=== PATIENT | male | born 1990 ===

== ENCOUNTER 2018-09-11 17:09 | Emergency (ER) | payer OTHER ==
[2018-09-11 18:57] LABS: BASO % 0.4 % (0.0-2.0); EOS # 0.2 K/uL (0.0-0.7); HEMOGLOBIN 15.9 g/dL (12.0-18.0); LYMPH # 1.9 K/uL (1.0-4.3); LYMPH % 18.7 % (20.0-40.0); MEAN CELL VOLUME 82.3 fl (80.0-94.0); MEAN CORPUSCULAR HEMOGLOBIN 28.7 pg (27.0-31.0); MEAN CORPUSCULAR HGB CONC 34.8 g/dL (33.0-37.0); MEAN PLATELET VOLUME 10.8 fl (7.2-11.7); MONO # 0.9 K/uL (0.0-0.8); MONO % 8.7 % (0.0-10.0); NEUT # 7.2 K/uL (1.8-7.0); NEUT % 70.2 % (50.0-75.0); NRBC % 0.1 % (0.0-0.0); RBC 5.54 Mil/uL (4.40-5.90); RED CELL DISTRIBUTION WIDTH 13.8 % (11.5-14.5); WHITE BLOOD COUNT 10.2 K/uL (4.8-10.8)
[2018-09-11 19:14] LABS: ALB/GLOB RATIO 1.4 (1.0-2.1); ALBUMIN 4.8 g/dL (3.5-5.0); ALT/SGPT 48 U/L (21-72); AST/SGOT 31 U/L (17-59); BLOOD UREA NITROGEN 12 mg/dl (9-20); CALCIUM 9.5 mg/dL (8.4-10.2); GFR NON-AFRICAN AMERICAN > 60
--- NOTE | 2018-09-11 19:34 | ED PDOC ---
HPI: General Adult Time Seen by Provider: 09/11/18 18:15 Chief Complaint (Nursing): Weakness/Neurological Deficit Chief Complaint (Provider): Numbness History Per: Patient History/Exam Limitations: no limitations Onset/Duration Of Symptoms: Days Current Symptoms Are (Timing): Still Present Severity: None Pain Scale Rating Of: 0 Additional Complaint(s): 27 y/o male c/o left sided arm pain/numbness/tingling for 3 days started after stretching and turning arm out. Patient reports since then numbness/tingling and rad to right arm and right side of the face. Patient states he is concerned and worried because numbness and tingling has progressed. Additionally he states that he has been feeling stressed and anxious lately. Patient denies headache, blurry vision, vomiting, unilateral weakness, recent illness, chest pain, shortness of breath, abd pain, diarrhea, dark urine. Past Medical History Reviewed: Historical Data, Nursing Documentation, Vital Signs Vital Signs: Last Vital Signs Temp 98.8 F 09/11/18 17:19 Pulse 76 09/11/18 17:19 Resp 20 09/11/18 17:19 BP 128/76 09/11/18 19:05 Pulse Ox 98 09/11/18 17:19 DYAN Report Viewed: No - Medical History PMH: No Chronic Diseases Denies: Chronic Kidney Disease - Surgical History Surgical History: No Surg Hx - Family History Family History: States: Unknown Family Hx - Living Arrangements Living Arrangements: With Family - Social History Alcohol: None Drugs: Denies - Immunization History Hx Tetanus Toxoid Vaccination: No Hx Influenza Vaccination: No Hx Pneumococcal Vaccination: No - Allergies Allergies/Adverse Reactions: Allergies Allergy/AdvReac Type Severity Reaction Status Date / Time No Known Allergies Allergy Verified 09/11/18 17:18 Review of Systems ROS Statement: Except As Marked, All Systems Reviewed And Found Negative Constitutional: Positive for: Weakness. Negative for: Fever, Chills, Sweats, Malaise Cardiovascular: Negative for: Chest Pain, Palpitations, Light Headedness Respiratory: Negative for: Cough, Shortness of Breath, SOB with Exertion, Wheezing Gastrointestinal: Negative for: Nausea, Vomiting, Abdominal Pain Genitourinary Male: Negative for: Dysuria Musculoskeletal: Positive for: Shoulder Pain, Arm Pain, Hand Pain Skin: Negative for: Rash Neurological: Positive for: Numbness. Negative for: Weakness, Incoordination, Change in Speech, Confusion, Altered Mental Status, Headache, Dizziness Psych: Positive for: Anxiety Physical Exam - Reviewed Nursing Documentation Reviewed: Yes Vital Signs Reviewed: Yes - Physical Exam Appears: Positive for: Well, Non-toxic, No Acute Distress Head Exam: Positive for: ATRAUMATIC, NORMAL INSPECTION, NORMOCEPHALIC Skin: Positive for: Normal Color, Warm, DRY Eye Exam: Positive for: EOMI, Normal appearance, PERRL ENT: Positive for: Normal ENT Inspection Neck: Positive for: Normal, Painless ROM, Supple Cardiovascular/Chest: Positive for: Regular Rate, Rhythm Respiratory: Positive for: CNT, Normal Breath Sounds Pulses-Radial (L): 2+ Pulses-Radial (R): 2+ Gastrointestinal/Abdominal: Positive for: Normal Exam, Bowel Sounds, Soft. Negative for: Tenderness Back: Positive for: Normal Inspection. Negative for: L CVA Tenderness, R CVA Tenderness Extremity: Positive for: Normal ROM Neurological/Psych: Positive for: Awake, Alert, Normal Tone, Symmetric/Intact St rength, Oriented, Mood/Affect (anxious), Gait (steady), Cerebellar Tests, Motor/Sensory Deficits (decreased sensation to left arm, right side of the face), building maintenance worker II-XII (intact). Negative for: Lethargic, Facial Droop - Laboratory Results Result Diagrams: 09/11/18 18:48 09/11/18 18:48 Lab Results: Total Bilirubin 0.9 mg/dl (0.2-1.3) 09/11/18 18:48 AST 31 U/L (17-59) 09/11/18 18:48 ALT 48 U/L (21-72) 09/11/18 18:48 Alkaline Phosphatase 75 U/L (38-126) 09/11/18 18:48 Total Protein 8.3 G/DL (6.3-8.2) H 09/11/18 18:48 Albumin 4.8 g/dL (3.5-5.0) 09/11/18 18:48 Globulin 3.5 gm/dL (2.2-3.9) 09/11/18 18:48 Albumin/Globulin Ratio 1.4 (1.0-2.1) 09/11/18 18:48 - ECG O2 Sat by Pulse Oximetry: 98 Medical Decision Making Medical Decision Making: -CBC --CMP --MAG --CT HEAD 1936: LABS REVIEWED BY ME, NEG FOR ABNORMALITIES. PENDING CT HEAD REPORT. CT head: Neg for intracranial abnormalities repeat b/p:128/76 labs reviewed by me, patient stable for d/c home. follow up with pmd and given information for neurology. Clinical findings discussed and patient verbalizes understanding and agree with plan. Patient instructed to take motrin OTC for pain. GIven return to ed precautions. Disposition - Clinical Impression Clinical Impression: Arm paresthesia, left - Patient ED Disposition Is Patient to be Admitted: No Counseled Patient/Family Regarding: Diagnosis, Need For Followup - Disposition Referrals: Mimi Jameson MD [Family Provider] - Chente Uriarte MD [Medical Doctor] - Disposition: Routine/Home Disposition Time: 20:00 Condition: GOOD Instructions: Paresthesias (DC) - POA Present On Arrival: None
[2018-09-11 21:13] VITALS: BP 137/70; PULSE 80; RESP 18; TEMP 98.5; O2SAT 99
--- NOTE | 2018-09-12 08:42 | CARD ---
APPROVED REPORT Date of service: 09/11/2018 EKG Measurement Heart [id number] <Conclusion> Normal sinus rhythm Normal ECG
--- NOTE | 2018-09-12 11:34 | CT ---
Date of service: 09/11/2018 PROCEDURE: CT HEAD WITHOUT CONTRAST. HISTORY: parathesias COMPARISON: None available. TECHNIQUE: Axial computed tomography images were obtained through the head/brain without intravenous contrast. Radiation dose: Total exam DLP = 819.12 mGy-cm. This CT exam was performed using one or more of the following dose reduction techniques: Automated exposure control, adjustment of the mA and/or kV according to patient size, and/or use of iterative reconstruction technique. FINDINGS: HEMORRHAGE: No intracranial hemorrhage. BRAIN: Normal ferris-white matter differentiation and density are appreciated throughout the cerebrum and cerebellum with the brainstem appearing unremarkable as well. There is no mass effect. There is no suspicious extra-axial fluid collection and the midline brain anatomy appears diffusely unremarkable. VENTRICLES: Unremarkable. No hydrocephalus. CALVARIUM: Unremarkable. PARANASAL SINUSES: Unremarkable as visualized. No significant inflammatory changes. MASTOID AIR CELLS: Unremarkable as visualized. No inflammatory changes. OTHER FINDINGS: None. IMPRESSION: Unremarkable unenhanced head CT. Concordant preliminary report from Marni, 09/11/2018, 7:59 p.m..
== END 2018-09-11 21:12 | disposition home or self-care (01) ==
LOC: H.ER 17:09
DX: R20.2 Paresthesia of skin (principal)